=== PATIENT | male | born 1955 | race Hispanic/Latino ===

== ENCOUNTER 2016-12-08 08:28 | Outpatient (CLI) | payer BC ==
--- NOTE | 2016-12-10 11:59 | Vascular Lab Report ---
MESENTERIC ARTERIAL DUPLEX Reason for exam: Celiac artery aneurysm Comments: The abdominal aorta is patent. Flow velocities are within normal limits. Minimal atherosclerotic change is identified. No aneurysmal dilatation is noted. The proximal abdominal aorta measures up to 2.1 cm. The mid abdominal aorta measures up to 2.1 cm. The distal abdominal aorta measures up to 1.8 cm. The celiac artery is patent. Flow velocities are borderline elevated (systolic 226 ; diastolic 39). The celiac artery measures up to 1.15 cm in the greatest diameter. The superior mesenteric artery is patent. Flow velocities are normal. No evidence of obstruction is identified. Impression: Borderline elevated flow velocity in the celiac artery. The celiac artery measures 1.15 cm in greatest diameter. The patient had borderline elevated flow velocity in the celiac artery in 2014 (systolic 253 ; diastolic 73 ) which measured 1.25 cm in greatest diameter. Consider further evaluation.
== END 2016-12-08 08:29 | disposition home or self-care (01) ==
LOC: VAS 08:28
PROVIDERS: ATTEND Surgery Vascular Surgery
DX: I72.8 Aneurysm of other specified arteries (principal)
CPT/HCPCS: 93979